=== PATIENT | male | born 1990 | race Two or more races ===

== ENCOUNTER 2017-06-03 13:45 | Emergency (ER) | payer MEDICAID ==
[~2017-06-03] VITALS: Ht 167.6 cm; Wt 98.4 kg
--- NOTE | 2017-06-03 13:47 | NUR ---
AMBULATORY TO ER BED 09. C/O HEADACHE X 2 WEEKS. DENIES TRAUMA. ON MONITOR. STABLE VITALS. AWAITING MD FAUSTIN.
[2017-06-03] MEDS ORDERED: MECLIZINE HCL 25 MG TABLET PO ONE (15:30)
[2017-06-03] MEDS ORDERED: ONDANSETRON 4 MG TAB.RAPDIS SL ONE (15:30)
[2017-06-03] MEDS ORDERED: ACETAMINOPHEN 325 MG TABLET PO ONE (15:30)
--- NOTE | 2017-06-03 15:40 | NUR ---
PT TO RADIOLOGY FOR HEAD CT SCAN VIA WHEELCHAIR.
[2017-06-03 15:55] LABS: BASOPHILS # (AUTO) 0.1 /CMM (0.0-0.2); BASOPHILS % (AUTO) 1.4 % (0.0-2.0); EOSINOPHILS # (AUTO) 0.2 /CMM (0.0-0.7); EOSINOPHILS % (AUTO) 2.5 % (0.0-6.0); HEMATOCRIT 45 % (39-51); HEMOGLOBIN 15.7 g/dL (13.5-17.5); LYMPHOCYTES % (AUTO) 26.2 % (20.0-44.0); MEAN CORPUSCULAR HEMOGLOBIN 30 PG (26.0-33.0); MEAN CORPUSCULAR HGB CONC 35 g/dl (31.0-36.0); MEAN CORPUSCULAR VOLUME 86 fL (80-96); MONOCYTES # (AUTO) 0.7 /CMM (0.1-1.30); MONOCYTES % (AUTO) 9.4 % (2.0-12.0); NEUTROPHILS # (AUTO) 4.6 /CMM (1.8-8.9); NEUTROPHILS % (AUTO) 60.5 % (43.0-81.0); PLATELET COUNT (AUTO) 188 /CMM (150-450); RDW COEFFICIENT OF VARIATION 12.9 (11.5-15.0); WHITE BLOOD COUNT (AUTO) 7.6 K/uL (4.3-11.0)
[2017-06-03] MEDS ORDERED: ACETAMINOPHEN ES 500 MG TABLET ONE (16:09)
[2017-06-03] MEDS ORDERED: ONDANSETRON 4 MG TAB.RAPDIS ONE (16:09)
[2017-06-03] MEDS ORDERED: MECLIZINE HCL 25 MG TABLET ONE (16:09)
[2017-06-03 16:13] LABS: CALCIUM, SERUM 9.5 mg/dL (8.5-10.1)
[2017-06-03 16:19] LABS: ALBUMIN 4.2 g/dL (3.4-5.0); BILIRUBIN,DIRECT 0.1 mg/dL (0.0-0.2); BILIRUBIN,TOTAL 0.5 mg/dL (0.2-1.0)
--- NOTE | 2017-06-03 17:15 | NUR ---
Patient discharged to home in stable condition. Written and verbal after care instructions given. Patient verbalizes understanding of instruction.
[2017-06-03 17:17] VITALS: BP 125/60
== END 2017-06-03 17:18 | disposition home or self-care (01) ==
LOC: ER 13:47
DX: R51 Headache (principal); R42 Dizziness and giddiness; R11.2 Nausea with vomiting, unspecified; R35.0 Frequency of micturition; R50.9 Fever, unspecified; R61 Generalized hyperhidrosis
CPT/HCPCS: 36415; 70450; 80048; 80076; 82962; 83690; 85025; 99285; A4606; J8597; Q0162; Z7610